=== PATIENT | male | born 1975 | race Hispanic/Latino ===

== ENCOUNTER 2022-07-26 19:51 | Emergency (ER) | payer OTHER ==
[~2022-07-26] VITALS: Ht 170.2 cm; Wt 75.0 kg
[2022-07-26] MEDS ORDERED: LISINOPRIL10 MG PO (21:27)
[2022-07-26] MEDS ORDERED: ONDANSETRON ODT8 MG PO (22:21)
[2022-07-26] MEDS ORDERED: CHLORDIAZEPOXID25 MG PO (22:21)
[2022-07-27] MEDS ORDERED: CHLORDIAZEPOXID25 MG PO (13:47)
== END 2022-07-26 23:32 | disposition home or self-care (01) ==
LOC: ED 19:51
DX: F10.139 Alcohol abuse with withdrawal, unspecified (principal); I10 Essential (primary) hypertension; Z88.8 Allergy status to other drugs, medicaments and biological substances; Z79.899 Other long term (current) drug therapy
CPT/HCPCS: 36415; 80053; 83690; 85025; 85610; 96374; 96375; 99284-25; A9270; J2060; J2405; J3411; J7030

== ENCOUNTER 2022-07-27 10:08 | Emergency (ER) | payer OTHER ==
[~2022-07-27] VITALS: Ht 170.2 cm; Wt 74.8 kg
[~2022-07-27 10:08] MED LIST: CHLORDIAZEPOXID25 MG PO; LISINOPRIL10 MG PO; ONDANSETRON ODT8 MG PO
--- OUTSIDE RECORDS SUMMARY | 2022-07-27 10:10 | XMS ---
PreManage Notification: CURTIS SALAZAR Security Entry Level Account Representative Events No recent Security Events currently on file CRITERIA MET - [facility] - 2 Visits in 30 Days CARE PROVIDERS [facility], Clinic[facility]Center: [facility] PHONE: Unknown RADHAMES RICHARDS [facility] Current PHONE: Unknown Ed has no Care Guidelines for this patient. EHeather VISIT COUNT (12 MO.) [address] TOTAL 3 NOTE: Visits indicate total known visits. ED/UCC VISIT TRACKING (12 MO.) 07/27/2022 10:09 [facility] [place] TYPE: Emergency COMPLAINT: - VOMITING 07/26/2022 19:53 [facility] [place] TYPE: Emergency COMPLAINT: - ALCOHOL WITHDRAWLS [facility] DIAGNOSES: 49836. DETOX 99848. Alcohol dependence with withdrawal, uncomplicated INPATIENT VISIT TRACKING (12 MO.) No inpatient visits to display in this time frame [email or web address]
[2022-07-27] MEDS ORDERED: CHLORDIAZEPOXID25 MG PO (13:47)
== END 2022-07-27 14:20 | disposition home or self-care (01) ==
LOC: ED 10:08
DX: F10.239 Alcohol dependence with withdrawal, unspecified (principal); I10 Essential (primary) hypertension; Z88.5 Allergy status to narcotic agent; Z88.8 Allergy status to other drugs, medicaments and biological substances
CPT/HCPCS: 96361; 96374; 96375; 96376; 99284-25; J1790; J2060; J2405; J7030